=== PATIENT | female | born 1975 | race Caucasian/White ===

== ENCOUNTER 2017-11-03 12:42 | Emergency (ER) | payer BC ==
[2017-11-03 12:44] VITALS: BP 132/63; PULSE 68; RESP 14; TEMP 98.7; O2SAT 95
--- NOTE | 2017-11-03 13:02 | PD ---
HPI Chief Complaint: Cold / Flu Symptoms Time Seen by Provider: 12:53 Travel History International Travel<30 days: No Contact w/Intl Traveler<30days: No Traveled to known affect area: No History of Present Illness HPI Patient also complaining of cough, congestion, sore throat ongoing for 2 days. Patient reports woke up this morning she lost her voice, but has since returned. Patient has been using [id number] cold and flu medication for symptomatic relief. Denies any known fevers, nausea, vomiting, diarrhea, chest pain, shortness of breath, , neck pain, headaches, or back pain. Patient reports coworkers with similar symptoms. Throat pain is worse with swallowing. Denies any radiation. Describes pain as an irritation in her throat. Extx-wmo-[id number] DayQuil has helped some symptoms. PFSH Past Medical History Seizures: Yes ?: Not LMP: 10/30/2017 Social History Tobacco Use: No Substance Use: No Allergies-Medications (Allergen,Severity, Reaction): Coded Allergies: No Known Allergies (Unverified , 11/03/17) Reported Meds & Prescriptions Reported Meds & Active Scripts Active Ventolin Hfa 18 GM Inh (Albuterol Sulfate) 90 Mcg/Act Aer 2 Puff INH Q4-6H PRN Medrol Dosepak (Methylprednisolone) 4 Mg Dspk 4 Mg PO DIRECTED Per Pharmacist direction Review of Systems Except as stated in HPI: all other systems reviewed are Neg Physical Exam Narrative GENERAL: Well-developed, well nourished, in no acute distress, and non-ill appearing. SKIN: Focused skin assessment warm and dry. HEAD: Atraumatic. Normocephalic. EYES: Pupils equal and round. EOMI. No scleral icterus. No injection or drainage. ENT: No nasal bleeding or discharge. Mucous membranes pink and moist. Tympanic membranes pearly noble bilaterally. Posterior pharynx mildly erythematous without exudate. Uvula is midline. No tenderness to sinuses to palpation. NECK: Trachea midline. No cervical lymphadenopathy. Supple. No nuclear rigidity. CARDIOVASCULAR: Regular rate and rhythm. No murmur appreciated. RESPIRATORY: No accessory muscle use. No respiratory distress. Clear to auscultation. Breath sounds equal bilaterally. MUSCULOSKELETAL: No obvious deformities. No clubbing. No cyanosis. No edema. Full range of motion. NEUROLOGICAL: Awake and alert. No obvious cranial nerve deficits. Motor grossly within normal limits. Normal speech. PSYCHIATRIC: Appropriate mood and affect; insight and judgment normal. Data Data Last Documented VS Vital Signs Date Time Temp Pulse Resp B/P (MAP) Pulse Ox O2 Delivery O2 Flow Rate FiO2 11/03/17 12:44 98.7 68 14 132/63 (86) 95 Orders Orders Influenzae A/B Antigen (11/03/17 12:58) Group A Rapid Strep Screen (11/03/17 13:32) Strep Culture (Group A) (11/03/17 13:29) Ed Discharge Order (11/03/17 14:02) MDM Medical Decision Making Medical Screen Exam Complete: Yes Emergency Medical Condition: Yes Differential Diagnosis Influenza, strep pharyngitis, viral pharyngitis, upper respiratory infection, bronchitis, viral syndrome Narrative Course Patients symptom complex of cough and congestion is consistent with viral URI. The patient is non-ill appearing and is in no respiratory distress and comfortable. The patient moves air well and oxygen saturations are normal. There is no clinical evidence to suggest pneumonia at this time. Plan of care and management were discussed with the patient who agreed with plan. The patient was instructed to follow up with their physician and instructed to return if worsens, progressively worsening shortness of breath or difficulty breathing, persistent fever, chest pains or discomfort, inability to keep medication or fluids down with or without vomiting, or as needed. Patient in no obvious distress upon re-evaluation. All pertinent laboratory result(s) discussed with patient/family. Patient was asked if they wanted to speak to my attending, which the patient did not wish to do at this time. Any questions/concerns in reference to patient diagnosis/condition discussed and clarified prior to patient's discharge. Reinforced sheer importance of close follow up with patient's primary physician or primary care clinic. Instructed patient to return to ED immediately, if symptoms return/worsen. Patient showed understanding of above instructions. Further instructions and recommendations were detailed in discharge paperwork. Patient ambulated without difficulty out of ED at discharge. Diagnosis Primary Impression: URI (upper respiratory infection) Qualified Codes: J06.9 - Acute upper respiratory infection, unspecified Referrals: [facility] Patient Instructions: General Instructions, Upper Respiratory Infection (ED) Additional Instructions: Follow-up with your primary care physician in 3-5 days for reevaluation. Take all medication as prescribed. Continue using [id number] DayQuil for symptomatic relief. Use [id number]-[id number] ibuprofen as needed for additional pain and/or fever control. Follow instructions on the packaging. Drink plenty of non-caffeinated and nonalcoholic fluids. Return to the emergency department if symptoms get worse. Scripts Albuterol 18 GM Inh (Ventolin Hfa 18 GM Inh) 90 Mcg/Act Aer 2 PUFF INH Q4-6H Y for COUGH, #1 INHALER 0 Refills Prov: Brian Reed MD 11/03/17 Methylprednisolone Dosepak (Medrol Dosepak) 4 Mg Dspk 4 MG PO DIRECTED, #1 DSPK 0 Refills Per Pharmacist direction Prov: Brian Reed MD 11/03/17 Disposition: 01 DISCHARGE HOME Condition: Stable Hunter Virgen Nov 03, 2017 13:02
[2017-11-03] MEDS ORDERED: MEDR4PAK PO (14:02)
[2017-11-03] MEDS ORDERED: VENTAER INH (14:02)
== END 2017-11-03 14:10 | disposition home or self-care (01) ==
LOC: NEPK 12:42
DX: J06.9 Acute upper respiratory infection, unspecified (principal)
CPT/HCPCS: 87081; 87804; 87880; 99284